=== PATIENT | male | born 2000 | race African-American/Black ===

== ENCOUNTER 2023-12-01 23:46 | Emergency (ER) | payer OTHER ==
[~2023-12-01] VITALS: Ht 172.7 cm; Wt 84.1 kg
[2023-12-01 23:53] VITALS: BP 116/70; TEMP 97.9
[2023-12-02 00:20] VITALS: PULSE 66
== END 2023-12-02 00:20 | disposition home or self-care (01) ==
LOC: COL.ER 23:46
DX: R06.6 Hiccough (principal)